=== PATIENT | male | born 1990 | race Caucasian/White ===

== ENCOUNTER 2022-03-07 16:17 | Emergency (ER) | payer BC ==
[~2022-03-07] VITALS: Ht 177.8 cm; Wt 88.5 kg
[2022-03-07] MEDS ORDERED: LIDOCAINE HCL 1% 20 ML VIAL ONE (17:14)
[2022-03-07] MEDS ORDERED: LIDOCAINE HCL 1% 20 ML VIAL IJ ONE (17:15)
[2022-03-07] MEDS ORDERED: CLINDAMYCIN PHOSPHATE IV 600 MG in IV DEXTROSE 5% 100 ML IV ONE (17:15)
[2022-03-07] MEDS ORDERED: CEFTRIAXONE 1 G in IV DEXTROSE 5% 50 ML IV ONE (17:15)
[2022-03-07] MEDS ORDERED: IV NORMAL SALINE 1000 ML BAG IV ONE (17:15)
[2022-03-07] MEDS ORDERED: ACETAMINOPHEN ES 500 MG TABLET PO ONE (17:15)
[2022-03-07] MEDS ORDERED: ACETAMINOPHEN ES 500 MG TABLET ONE (17:25)
[2022-03-07] MEDS ORDERED: CEFTRIAXONE /D5W 50ML IVPB **ER PYXIS IV ONE (17:25)
[2022-03-07] MEDS ORDERED: CLINDAMYCIN 600 MG PIGGYBACK**ER OMNI IV ONE (17:25)
[2022-03-07 17:38] LABS: HEMATOCRIT 44.3 % (36.7-47.1); MEAN CORPUSCULAR HEMOGLOBIN 31.1 uug (23.8-33.4); MEAN CORPUSCULAR VOLUME 89.9 fL (73.0-96.2); PLATELET COUNT (AUTO) 245 K/uL (152-348)
[2022-03-07 17:48] LABS: CREATININE 1.3 mg/dL (0.6-1.3); POTASSIUM 3.9 mmol/L (3.5-5.1)
[2022-03-07] MEDS ORDERED: CLIN300C12 PO (18:00)
[2022-03-07] MEDS ORDERED: CEPH500C2 PO (18:00)
--- NOTE | 2022-03-07 18:53 | NUR ---
Patient is for discharged to home after all IV fluids are infused.. Written and verbal after care instructions given to patient. Patient verbalized understanding and compliance of instructions. Stressed follow up with primary doctor or return to ER for worsening s/s.
--- NOTE | 2022-03-07 19:05 | NUR ---
Received report from Patricia WILEY.
--- NOTE | 2022-03-07 19:45 | NUR ---
Patient discharged to home in stable condition. A/O x4. NAD noted. Ambulatory with a steady gait. All belongings with patient. Written and verbal after care instructions given. Patient verbalizes understanding of instructions. Stressed follow up or return to ER for worsening s/s.
[2022-03-07 19:47] VITALS: BP 120/75
== END 2022-03-07 19:45 | disposition home or self-care (01) ==
LOC: ER 16:17
DX: L02.416 Cutaneous abscess of left lower limb (principal); L03.116 Cellulitis of left lower limb; D72.829 Elevated white blood cell count, unspecified
CPT/HCPCS: 99284; 96365; 10060; 96367; 80048; 85025; 87040 ×2; 36415; 83605; J0696; J3490 ×2; J7040; A4663; A9150